=== PATIENT | female | born 1945 | race Caucasian/White ===

== ENCOUNTER 2018-11-11 09:30 | Observation (INO) ==
[2018-11-11] MEDS ORDERED: 0.9 % Sodium Chloride Mini Bag 100 ML ONE (12:10)
[2018-11-11] MEDS ORDERED: Lidocaine -MPF 2% 2 ML VIAL ONE (15:02)
[2018-11-11] MEDS ORDERED: *HR* Rocuronium Bromide 50 MG/5 ML VIAL ONE (15:02)
[2018-11-11] MEDS ORDERED: *HR* FentaNYL (PF) 100 MCG/2 ML VIAL ONE (15:07)
[2018-11-11] MEDS ORDERED: *HR* Propofol 200 MG/20 ML VIAL IVP ONE (15:07)
[2018-11-11] MEDS ORDERED: CefOXitin 2,000 MG VIAL ONE (15:47)
[2018-11-11] MEDS ORDERED: *HR* OxyCODONE/APAP 5/325 TABLET PO PRN (15:58)
[2018-11-11] MEDS ORDERED: Ondansetron 4 MG/2 ML VIAL IVP ONE ×2 (16:08→18:39)
[2018-11-11] MEDS ORDERED: *HR* HYDROmorphone (PF) 1 MG/ML SYRINGE IVP PRN (16:08)
[2018-11-11] MEDS ORDERED: cefOXitin 2,000 MG in Water for inj. (sterile) 20 ML IVP ONE (16:10)
[2018-11-11 20:11] VITALS: BP 149/76
== END 2018-11-11 20:24 | disposition home or self-care (01) ==
LOC: SAMDAY 09:30 → 3ANU 09:30
PROVIDERS: ADMIT Surgery; ATTEND Surgery